=== PATIENT | male | born 1970 | race Caucasian/White ===

== ENCOUNTER → 2020-06-22 | Outpatient (CLI) | payer BC ==
[~2020-06-22] MED LIST: COMBIVENT RESPIM4 GM INH; NORVASC5 MG PO; OMNICEF 300 MG300 MG PO; TESTOSTERONE 1.62% TOP; ZESTRIL30 MG PO; ZITHROMAX500 MG PO
[2020-06-22 12:52] LABS: HEMOGLOBIN 15.2 gm/dl (14.0-17.5); RED BLOOD COUNT 5.16 M/UL (4.20-5.50); WHITE BLOOD COUNT 9.3 K/UL (4.5-11.0)
[2020-06-22 13:27] LABS: BUN/CREATININE RATIO 10 (0-10)
[2020-06-23 08:13] LABS: THYROXINE (T4) 8.1 ug/dL (4.5-12.0)
== END ==
LOC: LAB 11:10
PROVIDERS: Nurse Practitioner
DX: U07.1 COVID-19 (principal); J12.82 Pneumonia due to coronavirus disease 2019; K21.9 Gastro-esophageal reflux disease without esophagitis; Z13.1 Encounter for screening for diabetes mellitus; R91.8 Other nonspecific abnormal finding of lung field
CPT/HCPCS: 36415; 71046; 80053; 80061; 82550; 83036; 84436; 84443; 84480; 85025